=== PATIENT | female | born 1960 | race Caucasian/White ===

== ENCOUNTER 2016-07-30 07:22 | Day surgery (SDC) | payer MEDICARE ==
[~2016-07-30] VITALS: Ht 157.5 cm; Wt 49.9 kg
[~2016-07-30 07:22] MED LIST: ALPRAZOLA1 PO; BC HEADACH1 PO; DILTIAZEM PO
[2016-07-30 11:21] VITALS: BP 126/75
== END 2016-07-30 09:30 | disposition home or self-care (01) ==
LOC: ENDO 07:22
PROVIDERS: ATTEND Surgery
PROC: 0DBP8ZX Excision of Rectum, Via Natural or Artificial Opening Endoscopic, Diagnostic (ICD-10-PCS; principal; 2016-07-30)
DX: Z12.11 Encounter for screening for malignant neoplasm of colon (principal); K62.1 Rectal polyp; I10 Essential (primary) hypertension; F41.1 Generalized anxiety disorder; F17.210 Nicotine dependence, cigarettes, uncomplicated